=== PATIENT | female | born 1985 | race Caucasian/White ===

== ENCOUNTER 2019-07-20 11:18 | Emergency (ER) | payer OTHER ==
[2019-07-20 11:29] VITALS: BP 119/70; PULSE 124
--- NOTE | 2019-07-20 12:22 | EDM.PDOC ---
ED HPI GENERAL MEDICAL PROBLEM - General Chief Complaint: Genitourinary Problem Stated Complaint: HAVING TROUBLE PEEING/ABDOMINAL PAIN/12 WEEKS PREG Time Seen by Provider: 07/20/19 12:16 Source of Information: Reports: Patient History Limitations: Reports: No Limitations - History of Present Illness INITIAL COMMENTS - FREE TEXT/NARRATIVE: This 34 yo female patient reports to the ED with lower abdominal pain and inability to urinate. The patient reports she has been in contact with the [facility] regarding her increasing symptoms. Dr. Barajas came to the ED to visit the patient. A catheter was placed prior to my assessment of the patient. The patient reports relief of symptoms. Onset: Today Duration: Constant, Getting Worse Location: Reports: Abdomen Quality: Reports: Other Severity: Severe Improves with: Reports: None Worsens with: Reports: None Context: Reports: Other Associated Symptoms: Reports: No Other Symptoms Bladder Pain Score (Numeric/FACES): 9 - Related Data Allergies Allergy/AdvReac Type Severity Reaction Status Date / Time amoxicillin Allergy Hives Verified 11/24/15 17:55 codeine Allergy Hives Verified 11/24/15 17:55 erythromycin base Allergy Hives Verified 11/24/15 17:55 Home Meds: Home Meds Acetaminophen [Tylenol] 650 mg PO Q6H PRN #0 tablet 11/25/15 [Rx] Docusate Sodium [Colace] 100 mg PO BID PRN #0 cap 11/25/15 [Rx] Ibuprofen [IJD: Ibuprofen] 800 mg PO Q8H PRN #0 tablet 11/25/15 [Rx] Vit with Ca/FA/Iron [ Plus Iron] 1 each PO DAILY tablet [Rx] Past Medical History - Past Health History Medical/Surgical History: Denies Medical/Surgical History Neurological History: Reports: None Psychiatric History: Reports: None - Past Surgical History Neurological Surgical History: Reports: None ED ROS GENERAL - Review of Systems Review Of Systems: Comprehensive ROS is negative, except as noted in HPI. ED EXAM, RENAL/ - Physical Exam Exam: See Below Exam Limited By: No Limitations General Appearance: Alert, WD/WN, Severe Distress (upon arrival) Eye Exam: Bilateral Eye: EOMI, Normal Inspection, PERRL Ears: Normal External Exam, Normal Canal, Hearing Grossly Normal, Normal TMs Nose: Normal Inspection, Normal Mucosa, No Blood Throat/Mouth: Normal Inspection, Normal Lips, Normal Teeth, Normal Gums, Normal Oropharynx, Normal Voice, No Airway Compromise Head: Atraumatic, Normocephalic Neck: Normal Inspection, Supple, Non-Tender, Full Range of Motion Respiratory/Chest: No Respiratory Distress, Lungs Clear, Normal Breath Sounds, No Accessory Muscle Use, Chest Non-Tender Cardiovascular: Normal Peripheral Pulses, Regular Rate, Rhythm, No Edema, No Gallop, No JVD, No Murmur, No Rub GI/Abdominal: Normal Bowel Sounds, Soft, No Organomegaly, No Distention, No Abnormal Bruit, No Mass, Tender (lower abdominal tenderness after bladder has been emptied) (Female) Exam: Deferred Rectal (Female) Exam: Deferred Back Exam: Normal Inspection, Full Range of Motion, NT Extremities: Normal Inspection, Normal Range of Motion, Non-Tender, Normal Capillary Refill, No Pedal Edema Neurological: Alert, Oriented, CN II-XII Intact, Normal Cognition, Normal Gait, Normal Reflexes, No Motor/Sensory Deficits Psychiatric: Normal Affect, Normal Mood Skin Exam: Warm, Dry, Intact, Normal Color, No Rash Lymphatic: No Adenopathy Course - Vital Signs Last Recorded V/S: Last Vital Signs Temp 36.3 C 07/20/19 11:26 Pulse 124 H 07/20/19 11:26 Resp 18 07/20/19 11:26 BP 119/70 07/20/19 11:26 Pulse Ox 99 07/20/19 11:26 - Re-Assessments/Exams Free Text/Narrative Re-Assessment/Exam: 07/20/19 12:21 The patient's bladder was drained with a urinary catheter relieving the patient' s symptoms. The patient was pleasant throughout visit. Departure - Departure Time of Disposition: 12:22 Disposition: Home, Self-Care 01 Condition: Fair Clinical Impression: Acute urinary retention - Discharge Information *PRESCRIPTION DRUG MONITORING PROGRAM REVIEWED*: Not Applicable *COPY OF PRESCRIPTION DRUG MONITORING REPORT IN PATIENT RODGER: Not Applicable Instructions: Acute Urinary Retention, Female, [id number] Care Plan Goals: The patient was advised of the examination results during the visit. The patient was catheterized while in the ED with symptom relief. Dr. Barajas will be setting up a plan for any additional similar episodes. If the patient has any additional symptoms or concerns, the patient should either return to the hospital or visit her primary care facility. Sepsis Event Note - Evaluation Sepsis Screening Result: No Definite Risk - Focused Exam Vital Signs: Vital Signs Temp Pulse Resp BP Pulse Ox 07/20/19 11:26 36.3 C 124 H 18 119/70 99 Date Exam was Performed: 07/20/19 Time Exam was Performed: 12:16
== END 2019-07-20 13:00 | disposition home or self-care (01) ==
LOC: DL.ED 11:18
DX: O99.89 Other specified diseases and conditions complicating pregnancy, childbirth and the puerperium (principal); R33.9 Retention of urine, unspecified; Z88.1 Allergy status to other antibiotic agents; Z3A.12 12 weeks gestation of pregnancy
CPT/HCPCS: 99283